=== PATIENT | female | born 1980 | race Hispanic/Latino ===

== ENCOUNTER 2016-07-15 10:39 | Emergency (ER) | payer BC, OTHER ==
--- NOTE | 2016-07-15 12:40 | REP ---
Chest two views HISTORY: Chest pain Comparison: 09/24/2006 The lungs are clear. The heart is normal in size. The pulmonary vasculature is normal in appearance. The bony structure is intact. IMPRESSION: No acute disease. Signed by Demar Watson MD 07/15/2016 12:31 P
[2016-07-15 13:00] LABS: BASO # 0.1 K/mm3 (0.0-0.2); BASO % 1.3 % (0.0-1.0); EOS # 0.1 K/mm3 (0.0-0.50); EOS % 1.3 % (0.0-3.0); LARGE UNSTAINED CELL # 0.1 K/mm3 (0.0-0.4); LARGE UNSTAINED CELL % 1.7 % (0.0-4.0); LYMPH # 2.3 K/mm3 (1.5-4.5); LYMPH % 29.9 % (24.0-44.0); MEAN CORPUSCULAR HEMOGLOBIN 30.3 pg (27.0-33.0); MEAN CORPUSCULAR HGB CONC 33.6 g/dl (32.0-36.5); MEAN CORPUSCULAR VOLUME 90.2 fl (80.0-96.0); MONO # 0.3 K/mm3 (0.0-0.8); NEUTROPHILS # 4.4 K/mm3 (1.8-7.7); NEUTROPHILS % 61.8 % (36.0-66.0); PLATELET COUNT, AUTOMATED 286 k/mm3 (150-450); RED CELL DISTRIBUTION WIDTH 13.1 % (11.5-14.5); WHITE BLOOD COUNT 7.2 K/mm3 (4.0-10.0)
[2016-07-15 13:02] LABS: INR 0.96
[2016-07-15 13:22] LABS: ANION GAP 10 MEQ/L (8-16); BLOOD UREA NITROGEN 13 MG/DL (7-18); CALCIUM LEVEL 8.9 MG/DL (8.5-10.1); CARBON DIOXIDE LEVEL 26 MEQ/L (21-32); CHLORIDE LEVEL 104 MEQ/L (98-107); GLOMERULAR FILTRATION RATE > 60.0 (>60); GLUCOSE, FASTING 84 MG/DL (70-105); POTASSIUM SERUM 3.9 MEQ/L (3.5-5.1); SODIUM LEVEL 140 MEQ/L (136-145)
--- NOTE | 2016-07-15 14:37 | EDDOCDS ---
Physician Documentation [facility] Name: Wilma Nash Age: 36 yrs Sex: Female : 1980 Arrival Date: 07/15/2016 Time: 10:39 Bed I6 / 28 Private MD: Disposition: 07/15/16 14:03 Discharged to Home/Self Care. Impression: Chest pain, unspecified. - Condition is Stable. - Discharge Instructions: Nonspecific Chest Pain. - Prescriptions for Carafate 1 gram Oral Tablet - take 2 tablet by ORAL route every 12 hours take on an empty stomach, beginning on waking and last dose at bedtime; 100 tablet. - Medication Reconciliation, Local Pharmacy Hours form. - Follow up: Private Physician; When: Call to arrange an appointment; Reason: Further diagnostic work-up, Recheck today's complaints, Continuance of care. - Problem is new. - Symptoms are unchanged. Historical: - Allergies: no known allergies; - Home Meds: 1. none - PMHx: tachycardia in past; - PSHx: ; - Social history: Smoking status: Patient states was never smoker of tobacco. No barriers to communication noted, The patient speaks fluent Upper Sorbian. - Family history: Not pertinent. - : The pt / caregiver states he / she is not on anticoagulants. Home medication list is obtained from the patient. - Exposure Risk Screening:: None identified. 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 2 in. (157.48 cm); 14:07 BP 122 / 78; Pulse 73; Resp 18; Temp 98.3(O); Pulse Ox 100% on R/A; Pain 6/10; nb2 10:41 Body Mass Index 29.26 (72.57 kg, 157.48 cm) elp MDM: 10:46 ECG WITH READING ER PHYS+CARDIAG ordered. EDMS 12:20 Financial registration complete. lg 12:24 Basic Metabolic Profile Ordered. EDMS 12:24 CBC with Diff Ordered. EDMS 12:24 Cardiac Injury Profile Ordered. EDMS 12:24 D-Dimer Quant Ordered. EDMS 12:24 Prothrombin Time Profile\E\INR Ordered. EDMS 12:24 Troponin Ordered. EDMS 12:26 Chest, 2 View (pa\E\lat) Ordered. EDMS 12:37 [facility] [place] Payment Agreement was scanned into [employer] and attached to record. lg 13:45 CBC with Diff Reviewed. btw 13:45 Basic Metabolic Profile Reviewed. btw 13:45 Cardiac Injury Profile Reviewed. btw 13:45 D-Dimer Quant Reviewed. btw 13:45 Prothrombin Time Profile\E\INR Reviewed. btw 13:45 Troponin Reviewed. btw 13:45 Chest, 2 View (pa\E\lat) Reviewed. btw Signatures: Dispatcher [employer] EDMS Niles ElizabethRN Maddy Silva RN Wagner Hartmann mcp, Zain Reg lg Frank Redmond PA PA btw Jessica Vega RN RN ttb The chart was reviewed and I authenticate all verbal orders and agree with the evaluation and treatment provided.Corrections: (The following items were deleted from the chart) 12:25 11:44 Chest, 1 view+XR ordered. EDMS EDMS Attachments: 12:37 [facility] Payment Agreement lg MTDD
--- NOTE | 2016-07-15 14:37 | EDDOCDS ---
Nurse's Notes [facility] Name: Wilma Nash Age: 36 yrs Sex: Female : 1980 Arrival Date: 07/15/2016 Time: 10:39 Bed I6 / 28 Private MD: Diagnosis: Chest pain, unspecified Presentation: 07/15 10:47 Presenting complaint: Patient states: Mid chest pain since yesterday--hurts with deep mcp breath--describes pain as pressure, started out as a sharp pain, woke up from sleeping. 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 Adult Sepsis Screening: The patient does not have new or worsening altered mentation. Patient's respiratory rate is less than 22. Systolic blood pressure is greater than 100. Patient has a qSOFA score of 0- Negative Sepsis Screen. Suicide/Homicide risk assessment- the patient denies having any suicidal and/or homicidal ideations and does not present with any other emotional, behavioral or mental health complaints. 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 Transition of care: patient was not received from another setting of care. 10:47 Acuity: ASHLEY Level [facility] 10:47 Method Of Arrival: Walkin/Carried/[facility] Triage Assessment: 10:50 General: Appears uncomfortable, Behavior is cooperative. Pain: Location: chest Pain mcp currently is 6 out of 10 on a pain scale. Quality of pain is described as pressure. HIV screening NA for this visit Offered previously. Neurological: No deficits noted. Cardiovascular: Rhythm is sinus rhythm No ectopy. Chest pain is described as severe, radiates Does not radiate. episodes are continuous began yesterday. Respiratory: Airway is patent Respiratory effort is even, unlabored. Derm: Skin is pink, warm & dry. 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 none - PMHx: tachycardia in past; - PSHx: ; - Social history: Smoking status: Patient states was never smoker of tobacco. No barriers to communication noted, The patient speaks fluent Belarusian. - Family history: Not pertinent. - : The pt / caregiver states he / she is not on anticoagulants. Home medication list is obtained from the patient. - Exposure Risk Screening:: None identified. Screenin:53 Screening information is obtained from the patient. Fall risk: No risks identified. ttb Assistance ADL's: requires no assistance with activities of daily living. Abuse/DV Screen: The patient / caregiver reports he/she is: not in a situation that causes fear, pain or injury. Nutritional screening: No deficits noted. Advance Directives: Currently, there is no health care proxy. home support is adequate. Assessment: 11:53 General: Appears in no apparent distress, well nourished, well groomed, Behavior is ttb appropriate for age, cooperative, pleasant, quiet. Pain: Location: left mid chest with inspriration. Cardiovascular: Chest pain quality is pressure. Respiratory: Airway is patent Respiratory effort is even, unlabored, Reports cough that is non-productive, pain with respiration the patient has mild shortness of breath Denies cough, shortness of breath. GI: Denies nausea, vomiting. Derm: Skin is normal. 13:27 General: Appears skin warm and dry color satisfactory. Moist pink oral mucosa. Point jmk specific discomfort is point specific to left anterior chest. pain is not reproduced with palpation of anterior intercostal spaces. chest CTA. without resp distress. pleasant and conversive.. Cardiovascular: Capillary refill < 3 seconds Heart tones S1 S2. 14:35 General: Appears states pain has unchanged since arrival. receptive to discharge.. k Vital Signs: 10:41 BP 129 / 80; Pulse 87; Resp 18; Temp 96.7; Pulse Ox 98% ; Weight 72.57 kg; Height 5 ft. elp 2 in. (157.48 cm); 14:07 BP 122 / 78; Pulse 73; Resp 18; Temp 98.3(O); Pulse Ox 100% on R/A; Pain 6/10; nb2 10:41 Body Mass Index 29.26 (72.57 kg, 157.48 cm) elp Vitals: 10:41 Log In Time: July 15, 2016 at 10:40. RN notified that patient meets Red Flag elp criteria. ED Course: 10:41 Patient visited by Viridiana Hemphill PCA. elp 10:41 Patient moved to Waiting elp 10:42 Patient visited by Viridiana Hemphill PCA. elp 10:44 Patient moved to PR2 / 26 elp 10:49 Triage Initiated mcp 10:51 Patient visited by Maddy Rudd RN. mcp 10:58 EKG done. (by ED staff). Reviewed by Angeles Brown MD. nb2 10:59 Patient visited by Zakiya Khan. nb2 11:04 Patient moved to Pre RCE mcp 11:51 Patient moved to Triage 1 ttb 11:53 The patient / caregiver is instructed regarding the plan of care and ED course. Patient ttb has correct armband on for positive identification. EKG completed as documented. 11:55 Patient visited by Jessica Vega RN. ttb 12:15 Frank Redmond PA is PHCP. btw 12:15 Angeles Brown MD is Attending Physician. btw 12:15 Patient visited by Frank Redmond PA. btw 12:22 Patient moved to TR1 cmb 12:22 Patient moved to I6 / 28 cmb 12:36 Patient name changed from Xaymara\S\\S\Nash\S\ to Xaymara\S\ \S\Nash. EDMS 12:37 [facility] Payment Agreement was scanned into [employer] and attached to record. lg 12:43 Chest, 2 View (pa\E\lat) Returned. EDMS 12:49 Basic Metabolic Profile Sent. nb2 12:50 CBC with Diff Sent. nb2 12:50 Cardiac Injury Profile Sent. nb2 12:50 D-Dimer Quant Sent. nb2 12:50 Prothrombin Time Profile\E\INR Sent. nb2 12:50 Troponin Sent. nb2 13:29 Patient visited by Zakiya Khan. nb2 13:29 Patient visited by Niles Elizabeth RN. jmk 14:07 Patient visited by Zakiya Khan. nb2 14:35 No IV's were initiated during this patient's visit. No procedures done that require jmk assistance. Order Results: Lab Order: Basic Metabolic Profile; SPEC'M 07/15/16 12:47 Test: GLUCOSE, FASTING; Value: 84; Range: 70-105; Units: MG/DL; Status: F Test: BLOOD UREA NITROGEN; Value: 13; Range: 7-18; Units: MG/DL; Status: F Test: CREATININE FOR GFR; Value: 0.80; Range: 0.55-1.02; Units: MG/DL; Status: F Test: GLOMERULAR FILTRATION RATE; Value: > 60.0; Range: >60; Status: F Test: SODIUM LEVEL; Value: 140; Range: 136-145; Units: MEQ/L; Status: F Test: POTASSIUM SERUM; Value: 3.9; Range: 3.5-5.1; Units: MEQ/L; Status: F Test: CHLORIDE LEVEL; Value: 104; Range: 98-107; Units: MEQ/L; Status: F Test: CARBON DIOXIDE LEVEL; Value: 26; Range: 21-32; Units: MEQ/L; Status: F Test: ANION GAP; Value: 10; Range: 8-16; Units: MEQ/L; Status: F Test: CALCIUM LEVEL; Value: 8.9; Range: 8.5-10.1; Units: MG/DL; Status: F Test Note: ; Units are mL/min/1.73 m2 Chronic Kidney Disease Staging per NKF: Stage I & II GFR >=60 Normal to Mildly Decreased Stage III GFR 30-59 Moderately Decreased Stage IV GFR 15-29 Severely Decreased Stage V GFR <15 Very Little GFR Left ESRD GFR <15 on MEDICAL AFFAIRS SPECIALIST Lab Order: CBC with Diff; SPEC'M 07/15/16 12:48 Test: WHITE BLOOD COUNT; Value: 7.2; Range: 4.0-10.0; Units: K/mm3; Status: F Test: RED BLOOD COUNT; Value: 5.07; Range: 4.00-5.40; Units: M/mm3; Status: F Test: HEMOGLOBIN; Value: 15.4; Range: 12.0-16.0; Units: g/dl; Status: F Test: HEMATOCRIT; Value: 45.7; Range: 36.0-47.0; Units: %; Status: F Test: MEAN CORPUSCULAR VOLUME; Value: 90.2; Range: 80.0-96.0; Units: fl; Status: F Test: MEAN CORPUSCULAR HEMOGLOBIN; Value: 30.3; Range: 27.0-33.0; Units: pg; Status: F Test: MEAN CORPUSCULAR HGB CONC; Value: 33.6; Range: 32.0-36.5; Units: g/dl; Status: F Test: RED CELL DISTRIBUTION WIDTH; Value: 13.1; Range: 11.5-14.5; Units: %; Status: F Test: PLATELET COUNT, AUTOMATED; Value: 286; Range: 150-450; Units: k/mm3; Status: F Test: NEUTROPHILS %; Value: 61.8; Range: 36.0-66.0; Units: %; Status: F Test: LYMPH %; Value: 29.9; Range: 24.0-44.0; Units: %; Status: F Test: MONO %; Value: 4.0; Range: 0.0-5.0; Units: %; Status: F Test: EOS %; Value: 1.3; Range: 0.0-3.0; Units: %; Status: F Test: BASO %; Value: 1.3; Range: 0.0-1.0; Abnormal: Above high normal; Units: %; Status: F Test: LARGE UNSTAINED CELL %; Value: 1.7; Range: 0.0-4.0; Units: %; Status: F Test: NEUTROPHILS #; Value: 4.4; Range: 1.8-7.7; Units: K/mm3; Status: F Test: LYMPH #; Value: 2.3; Range: 1.5-4.5; Units: K/mm3; Status: F Test: MONO #; Value: 0.3; Range: 0.0-0.8; Units: K/mm3; Status: F Test: EOS #; Value: 0.1; Range: 0.0-0.50; Units: K/mm3; Status: F Test: BASO #; Value: 0.1; Range: 0.0-0.2; Units: K/mm3; Status: F Test: LARGE UNSTAINED CELL #; Value: 0.1; Range: 0.0-0.4; Units: K/mm3; Status: F Lab Order: Cardiac Injury Profile; SPEC'M 07/15/16 12:47 Test: CPK CREATINE PHOSPHOKINASE; Value: 115; Range: 26-192; Units: U/L; Status: F Test: CK-MB VALUE MASS; Value: 1.0; Range: 0.0-3.6; Units: NG/ML; Status: F Test: MB/CK RELATIVE INDEX; Value: 0.86; Range: < OR =4; Status: F Test Note: ; DIAGNOSIS CRITERIA MMB ng/ml Relative Index (RI) NON-AMI < or = 5 N/A KUMAR ZONE > 5 < or = 4 AMI > 5 > 4 Lab Order: D-Dimer Quant; SPEC'M 07/15/16 12:47 Test: D-DIMER QUANT; Value: < 270.0; Range: <500; Units: ng/ml; Status: F Lab Order: Prothrombin Time Profile\E\INR; SPEC'M 07/15/16 12:47 Test: PROTHROMBIN TIME; Value: 12.9; Range: 12.3-14.5; Units: SECONDS; Status: F Test: INR; Value: 0.96; Status: F Test Note: ; THERAPUTIC HUMAN INR VALUES INDICATIONS NORMAL RANGES PROPHYLAXIS/TREATMENT OF: VENOUS THROMBOSIS 2.0-3.0 PULMONARY EMBOLISM 2.0-3.0 PREVENTION OF SYSTEMIC EMBOLISM FROM: TISSUE HEART VALVES 2.0-3.0 ACUTE MYOCARDIAL INFARCTION 2.0-3.0 VALVULAR HEART DISEASE 2.0-3.0 ATRIAL FIBRILLATION 2.0-3.0 MECHANICAL VALVES(HIGH RISK) 2.5-3.5 RECURRENT MYOCARDIAL INFARCTION 2.5-3.5 Lab Order: Troponin; SPEC'M 07/15/16 12:47 Test: TROPONIN I; Value: < 0.02; Range: < 0.10; Units: NG/ML; Status: F Test Note: ; Troponin I Reference Interval for [place] LOCI: 99th Percentile= 0.00-0.045 ng/ml Risk Stratification: <= 0.10 ng/ml Decreased Risk for Adverse Clinical Events. 0.10-1.50 ng/ml Increased Risk for Adverse Clinical Events. Evaluation of additional criterion and/or repeat testing in 2-6 hours is suggested to rule out myocardial damage. >= 1.50 ng/ml Indicative of Myocardial Injury. Radiology Order: Chest, 2 View (pa\E\lat) Test: Chest, 2 View (pa\E\lat) REASON FOR EXAMINATION: Chest Pain; Chest two views; ; HISTORY: Chest pain; ; Comparison: 09/24/2006; ; The lungs are clear. The heart is normal in size. The pulmonary vasculature is; normal in appearance. The bony structure is intact.; ; IMPRESSION: No acute disease.; ; ; Signed by; Demar Watson MD 07/15/2016 12:31 P; Outcome: 14:03 Discharge ordered by Provider. btw 14:35 Discharge Assessment: Patient awake, alert and oriented x 3. No cognitive and/or jmk functional deficits noted. Patient verbalized understanding of disposition instructions. patient administered narcotics - no. The following High Risk Discharge criteria are identified: None. Discharged to home ambulatory. Condition: good. Discharge instructions given to patient, Instructed on discharge instructions, follow up and referral plans. medication usage, Demonstrated understanding of instructions, medications, Pt was receptive of discharge instructions/ teaching. Prescriptions given X 1. No special radiology studies were completed. Property :Personal belongings accompany Pt. 14:36 Patient left the ED. vance Signatures: Dispatcher [employer] EDNiles Austin,RN RN Maddy Villalta RN RN Wagner Rush, Zain Reg lg Frank Redmond PA PA btw Mikaela Cotton Teresa, RN RN rangelb Viridiana Hemphill, DENISE MANAGER SOLUTION Zakiya Kumar2 KENDRICK
--- NOTE | 2016-07-16 06:45 | ECGEPIP ---
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
--- NOTE | 2016-07-17 15:38 | EDDOCDS ---
Nurse's Notes [facility] Name: Allen Valentino Age: 36 yrs Sex: Female : 1980 Arrival Date: 07/15/2016 Time: 10:39 Bed I6 / 28 Private MD: Diagnosis: Chest pain, unspecified Presentation: 07/15 10:47 Presenting complaint: Patient states: Mid chest pain since yesterday--hurts with deep mcp breath--describes pain as pressure, started out as a sharp pain, woke up from sleeping. 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 Adult Sepsis Screening: The patient does not have new or worsening altered mentation. Patient's respiratory rate is less than 22. Systolic blood pressure is greater than 100. Patient has a qSOFA score of 0- Negative Sepsis Screen. Suicide/Homicide risk assessment- the patient denies having any suicidal and/or homicidal ideations and does not present with any other emotional, behavioral or mental health complaints. Status: Patient is not a neuropsychology service director or dependent. Transition of care: patient was not received from another setting of care. 10:47 Acuity: ASHLEY Level 3 [facility] 10:47 Method Of Arrival: Walkin/Carried/[facility] Triage Assessment: 10:50 General: Appears uncomfortable, Behavior is cooperative. Pain: Location: chest Pain mcp currently is 6 out of 10 on a pain scale. Quality of pain is described as pressure. HIV screening NA for this visit Offered previously. Neurological: No deficits noted. Cardiovascular: Rhythm is sinus rhythm No ectopy. Chest pain is described as severe, radiates Does not radiate. episodes are continuous began yesterday. Respiratory: Airway is patent Respiratory effort is even, unlabored. Derm: Skin is pink, warm & dry. LEADITE HEATER: 10:50 4, Living 1, LMP 06/2016 [facility] Historical: - Allergies: no known allergies; - Home Meds: 1. none - PMHx: tachycardia in past; - PSHx: ; - Social history: Smoking status: Patient states was never smoker of tobacco. No barriers to communication noted, The patient speaks fluent Icelandic. - Family history: Not pertinent. - : The pt / caregiver states he / she is not on anticoagulants. Home medication list is obtained from the patient. - Exposure Risk Screening:: None identified. Screenin:53 Screening information is obtained from the patient. Fall risk: No risks identified. ttb Assistance ADL's: requires no assistance with activities of daily living. Abuse/DV Screen: The patient / caregiver reports he/she is: not in a situation that causes fear, pain or injury. Nutritional screening: No deficits noted. Advance Directives: Currently, there is no health care proxy. home support is adequate. Assessment: 11:53 General: Appears in no apparent distress, well nourished, well groomed, Behavior is ttb appropriate for age, cooperative, pleasant, quiet. Pain: Location: left mid chest with inspriration. Cardiovascular: Chest pain quality is pressure. Respiratory: Airway is patent Respiratory effort is even, unlabored, Reports cough that is non-productive, pain with respiration the patient has mild shortness of breath Denies cough, shortness of breath. GI: Denies nausea, vomiting. Derm: Skin is normal. 13:27 General: Appears skin warm and dry color satisfactory. Moist pink oral mucosa. Point jmk specific discomfort is point specific to left anterior chest. pain is not reproduced with palpation of anterior intercostal spaces. chest CTA. without resp distress. pleasant and conversive.. Cardiovascular: Capillary refill < 3 seconds Heart tones S1 S2. 14:35 General: Appears states pain has unchanged since arrival. receptive to discharge.. k Vital Signs: 10:41 BP 129 / 80; Pulse 87; Resp 18; Temp 96.7; Pulse Ox 98% ; Weight 72.57 kg; Height 5 ft. elp 2 in. (157.48 cm); 14:07 BP 122 / 78; Pulse 73; Resp 18; Temp 98.3(O); Pulse Ox 100% on R/A; Pain 6/10; nb2 10:41 Body Mass Index 29.26 (72.57 kg, 157.48 cm) elp Vitals: 10:41 Log In Time: July 15, 2016 at 10:40. RN notified that patient meets Red Flag elp criteria. ED Course: 10:41 Patient visited by Viridiana Hemphill PCA. elp 10:41 Patient moved to Waiting elp 10:42 Patient visited by Viridiana Hemphill PCA. elp 10:44 Patient moved to PR2 / 26 elp 10:49 Triage Initiated mcp 10:51 Patient visited by Maddy Rudd RN. mcp 10:58 EKG done. (by ED staff). Reviewed by Angeles Brown MD. nb2 10:59 Patient visited by Zakiya Khan. nb2 11:04 Patient moved to Pre RCE mcp 11:51 Patient moved to Triage 1 ttb 11:53 The patient / caregiver is instructed regarding the plan of care and ED course. Patient ttb has correct armband on for positive identification. EKG completed as documented. 11:55 Patient visited by Jessica Vega RN. ttb 12:15 Frank Redmond PA is PHCP. btw 12:15 Angeles Brown MD is Attending Physician. btw 12:15 Patient visited by Frank Redmond PA. btw 12:22 Patient moved to TR1 cmb 12:22 Patient moved to I6 / 28 cmb 12:36 Patient name changed from Xaymara\S\\S\Valentino\S\ to Xaymara\S\ \S\Valentino. EDMS 12:37 [facility] Payment Agreement was scanned into [employer] and attached to record. lg 12:43 Chest, 2 View (pa\E\lat) Returned. EDMS 12:49 Basic Metabolic Profile Sent. nb2 12:50 CBC with Diff Sent. nb2 12:50 Cardiac Injury Profile Sent. nb2 12:50 D-Dimer Quant Sent. nb2 12:50 Prothrombin Time Profile\E\INR Sent. nb2 12:50 Troponin Sent. nb2 13:29 Patient visited by Zakiya Khan. nb2 13:29 Patient visited by Niles Elizabeth,TRACI. jmk 14:07 Patient visited by Zakiya Khan. nb2 14:35 No IV's were initiated during this patient's visit. No procedures done that require jmk assistance. 15:35 T-Sheet-- Draft Copy was scanned into [employer] and attached to record. gb 15:35 ECG/EKG was scanned into [employer] and attached to record. gb 07/16 06:53 EKG-ADULT Returned. EDMS Order Results: Lab Order: Basic Metabolic Profile; SPEC'M 07/15/16 12:47 Test: GLUCOSE, FASTING; Value: 84; Range: 70-105; Units: MG/DL; Status: F Test: BLOOD UREA NITROGEN; Value: 13; Range: 7-18; Units: MG/DL; Status: F Test: CREATININE FOR GFR; Value: 0.80; Range: 0.55-1.02; Units: MG/DL; Status: F Test: GLOMERULAR FILTRATION RATE; Value: > 60.0; Range: >60; Status: F Test: SODIUM LEVEL; Value: 140; Range: 136-145; Units: MEQ/L; Status: F Test: POTASSIUM SERUM; Value: 3.9; Range: 3.5-5.1; Units: MEQ/L; Status: F Test: CHLORIDE LEVEL; Value: 104; Range: 98-107; Units: MEQ/L; Status: F Test: CARBON DIOXIDE LEVEL; Value: 26; Range: 21-32; Units: MEQ/L; Status: F Test: ANION GAP; Value: 10; Range: 8-16; Units: MEQ/L; Status: F Test: CALCIUM LEVEL; Value: 8.9; Range: 8.5-10.1; Units: MG/DL; Status: F Test Note: ; Units are mL/min/1.73 m2 Chronic Kidney Disease Staging per NKF: Stage I & II GFR >=60 Normal to Mildly Decreased Stage III GFR 30-59 Moderately Decreased Stage IV GFR 15-29 Severely Decreased Stage V GFR <15 Very Little GFR Left ESRD GFR <15 on MARINE ENGINEERING CONSULTANT Lab Order: CBC with Diff; SPEC'M 07/15/16 12:48 Test: WHITE BLOOD COUNT; Value: 7.2; Range: 4.0-10.0; Units: K/mm3; Status: F Test: RED BLOOD COUNT; Value: 5.07; Range: 4.00-5.40; Units: M/mm3; Status: F Test: HEMOGLOBIN; Value: 15.4; Range: 12.0-16.0; Units: g/dl; Status: F Test: HEMATOCRIT; Value: 45.7; Range: 36.0-47.0; Units: %; Status: F Test: MEAN CORPUSCULAR VOLUME; Value: 90.2; Range: 80.0-96.0; Units: fl; Status: F Test: MEAN CORPUSCULAR HEMOGLOBIN; Value: 30.3; Range: 27.0-33.0; Units: pg; Status: F Test: MEAN CORPUSCULAR HGB CONC; Value: 33.6; Range: 32.0-36.5; Units: g/dl; Status: F Test: RED CELL DISTRIBUTION WIDTH; Value: 13.1; Range: 11.5-14.5; Units: %; Status: F Test: PLATELET COUNT, AUTOMATED; Value: 286; Range: 150-450; Units: k/mm3; Status: F Test: NEUTROPHILS %; Value: 61.8; Range: 36.0-66.0; Units: %; Status: F Test: LYMPH %; Value: 29.9; Range: 24.0-44.0; Units: %; Status: F Test: MONO %; Value: 4.0; Range: 0.0-5.0; Units: %; Status: F Test: EOS %; Value: 1.3; Range: 0.0-3.0; Units: %; Status: F Test: BASO %; Value: 1.3; Range: 0.0-1.0; Abnormal: Above high normal; Units: %; Status: F Test: LARGE UNSTAINED CELL %; Value: 1.7; Range: 0.0-4.0; Units: %; Status: F Test: NEUTROPHILS #; Value: 4.4; Range: 1.8-7.7; Units: K/mm3; Status: F Test: LYMPH #; Value: 2.3; Range: 1.5-4.5; Units: K/mm3; Status: F Test: MONO #; Value: 0.3; Range: 0.0-0.8; Units: K/mm3; Status: F Test: EOS #; Value: 0.1; Range: 0.0-0.50; Units: K/mm3; Status: F Test: BASO #; Value: 0.1; Range: 0.0-0.2; Units: K/mm3; Status: F Test: LARGE UNSTAINED CELL #; Value: 0.1; Range: 0.0-0.4; Units: K/mm3; Status: F Lab Order: Cardiac Injury Profile; SPEC'M 07/15/16 12:47 Test: CPK CREATINE PHOSPHOKINASE; Value: 115; Range: 26-192; Units: U/L; Status: F Test: CK-MB VALUE MASS; Value: 1.0; Range: 0.0-3.6; Units: NG/ML; Status: F Test: MB/CK RELATIVE INDEX; Value: 0.86; Range: < OR =4; Status: F Test Note: ; DIAGNOSIS CRITERIA MMB ng/ml Relative Index (RI) NON-AMI < or = 5 N/A KUMAR ZONE > 5 < or = 4 AMI > 5 > 4 Lab Order: D-Dimer Quant; SPEC'M 07/15/16 12:47 Test: D-DIMER QUANT; Value: < 270.0; Range: <500; Units: ng/ml; Status: F Lab Order: Prothrombin Time Profile\E\INR; SPEC'M 07/15/16 12:47 Test: PROTHROMBIN TIME; Value: 12.9; Range: 12.3-14.5; Units: SECONDS; Status: F Test: INR; Value: 0.96; Status: F Test Note: ; THERAPUTIC HUMAN INR VALUES INDICATIONS NORMAL RANGES PROPHYLAXIS/TREATMENT OF: VENOUS THROMBOSIS 2.0-3.0 PULMONARY EMBOLISM 2.0-3.0 PREVENTION OF SYSTEMIC EMBOLISM FROM: TISSUE HEART VALVES 2.0-3.0 ACUTE MYOCARDIAL INFARCTION 2.0-3.0 VALVULAR HEART DISEASE 2.0-3.0 ATRIAL FIBRILLATION 2.0-3.0 MECHANICAL VALVES(HIGH RISK) 2.5-3.5 RECURRENT MYOCARDIAL INFARCTION 2.5-3.5 Lab Order: Troponin; SPEC'M 07/15/16 12:47 Test: TROPONIN I; Value: < 0.02; Range: < 0.10; Units: NG/ML; Status: F Test Note: ; Troponin I Reference Interval for [place] LOCI: 99th Percentile= 0.00-0.045 ng/ml Risk Stratification: <= 0.10 ng/ml Decreased Risk for Adverse Clinical Events. 0.10-1.50 ng/ml Increased Risk for Adverse Clinical Events. Evaluation of additional criterion and/or repeat testing in 2-6 hours is suggested to rule out myocardial damage. >= 1.50 ng/ml Indicative of Myocardial Injury. 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 The heart is normal in size. The pulmonary vasculature is; normal in appearance. The bony structure is intact.; ; IMPRESSION: No acute disease.; ; ; Signed by; Demar Watson MD 07/15/2016 12:31 P; Outcome: 07/15 14:03 Discharge ordered by Provider. btw 14:35 Discharge Assessment: Patient awake, alert and oriented x 3. No cognitive and/or jmk functional deficits noted. Patient verbalized understanding of disposition instructions. patient administered narcotics - no. The following High Risk Discharge criteria are identified: None. Discharged to home ambulatory. Condition: good. Discharge instructions given to patient, Instructed on discharge instructions, follow up and referral plans. medication usage, Demonstrated understanding of instructions, medications, Pt was receptive of discharge instructions/ teaching. Prescriptions given X 1. No special radiology studies were completed. Property :Personal belongings accompany Pt. 14:36 Patient left the ED. treverk Signatures: Dispatcher [employer] EDMS Niles ElizabethRN Maddy Silva RN RN mcp Barnhardt, Gloria, Reg Reg gb Wagner Driver, Reg Reg lg Frank Redmond PA PA btw Mikaela Cotton Teresa, RN RN ttb Viridiana Hemphill, DENISE [employer] SALES ENGINEER elp Baart, Zakiya nb2 Chart Complete MTDD
--- NOTE | 2016-07-17 15:38 | EDDOCDS ---
Physician Documentation [facility] Name: Wilma Nash Age: 36 yrs Sex: Female : 1980 Arrival Date: 07/15/2016 Time: 10:39 Bed I6 / 28 Private MD: Disposition: 07/15/16 14:03 Discharged to Home/Self Care. Impression: Chest pain, unspecified. - Condition is Stable. - Discharge Instructions: Nonspecific Chest Pain. - Prescriptions for Carafate 1 gram Oral Tablet - take 2 tablet by ORAL route every 12 hours take on an empty stomach, beginning on waking and last dose at bedtime; 100 tablet. - Medication Reconciliation, Local Pharmacy Hours form. - Follow up: Private Physician; When: Call to arrange an appointment; Reason: Further diagnostic work-up, Recheck today's complaints, Continuance of care. - Problem is new. - Symptoms are unchanged. Historical: - Allergies: no known allergies; - Home Meds: 1. none - PMHx: tachycardia in past; - PSHx: ; - Social history: Smoking status: Patient states was never smoker of tobacco. No barriers to communication noted, The patient speaks fluent Kyrgyz. - Family history: Not pertinent. - : The pt / caregiver states he / she is not on anticoagulants. Home medication list is obtained from the patient. - Exposure Risk Screening:: None identified. 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 2 in. (157.48 cm); 14:07 BP 122 / 78; Pulse 73; Resp 18; Temp 98.3(O); Pulse Ox 100% on R/A; Pain 6/10; nb2 10:41 Body Mass Index 29.26 (72.57 kg, 157.48 cm) elp MDM: 10:46 ECG WITH READING ER PHYS+CARDIAG ordered. EDMS 12:20 Financial registration complete. lg 12:24 Basic Metabolic Profile Ordered. EDMS 12:24 CBC with Diff Ordered. EDMS 12:24 Cardiac Injury Profile Ordered. EDMS 12:24 D-Dimer Quant Ordered. EDMS 12:24 Prothrombin Time Profile\E\INR Ordered. EDMS 12:24 Troponin Ordered. EDMS 12:26 Chest, 2 View (pa\E\lat) Ordered. EDMS 12:37 [facility] Payment Agreement was scanned into [employer] and attached to record. lg 13:45 CBC with Diff Reviewed. btw 13:45 Basic Metabolic Profile Reviewed. btw 13:45 Cardiac Injury Profile Reviewed. btw 13:45 D-Dimer Quant Reviewed. btw 13:45 Prothrombin Time Profile\E\INR Reviewed. btw 13:45 Troponin Reviewed. btw 13:45 Chest, 2 View (pa\E\lat) Reviewed. btw 15:35 T-Sheet-- Draft Copy was scanned into [employer] and attached to record. gb 15:35 ECG/EKG was scanned into [employer] and attached to record. gb Signatures: Dispatcher [employer] EDNiles Austin,RN Maddy Silva RN Carley Lockwood mcp, Reg Reg gb Wagner Driver, Reg Reg lg Frank Redmond, PA PA btw Jessica Vega RN TRACI ttb The chart was reviewed and I authenticate all verbal orders and agree with the evaluation and treatment provided.Corrections: (The following items were deleted from the chart) 12:25 11:44 Chest, 1 view+XR ordered. EDMS EDMS Attachments: 12:37 [facility] Payment Agreement lg 15:35 T-Sheet-- Draft Copy gb 15:35 ECG/EKG gb Chart Complete MTDD
--- NOTE | 2016-07-17 15:38 | EDDOCDS ---
Physician Documentation [facility] Name: Wilma Nash Age: 36 yrs Sex: Female : 1980 Arrival Date: 07/15/2016 Time: 10:39 Bed I6 / 28 Private MD: Disposition: 07/15/16 14:03 Discharged to Home/Self Care. Impression: Chest pain, unspecified. - Condition is Stable. - Discharge Instructions: Nonspecific Chest Pain. - Prescriptions for Carafate 1 gram Oral Tablet - take 2 tablet by ORAL route every 12 hours take on an empty stomach, beginning on waking and last dose at bedtime; 100 tablet. - Medication Reconciliation, Local Pharmacy Hours form. - Follow up: Private Physician; When: Call to arrange an appointment; Reason: Further diagnostic work-up, Recheck today's complaints, Continuance of care. - Problem is new. - Symptoms are unchanged. Historical: - Allergies: no known allergies; - Home Meds: 1. none - PMHx: tachycardia in past; - PSHx: ; - Social history: Smoking status: Patient states was never smoker of tobacco. No barriers to communication noted, The patient speaks fluent Chinese. - Family history: Not pertinent. - : The pt / caregiver states he / she is not on anticoagulants. Home medication list is obtained from the patient. - Exposure Risk Screening:: None identified. 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 2 in. (157.48 cm); 14:07 BP 122 / 78; Pulse 73; Resp 18; Temp 98.3(O); Pulse Ox 100% on R/A; Pain 6/10; nb2 10:41 Body Mass Index 29.26 (72.57 kg, 157.48 cm) elp MDM: 10:46 ECG WITH READING ER PHYS+CARDIAG ordered. EDMS 12:20 Financial registration complete. lg 12:24 Basic Metabolic Profile Ordered. EDMS 12:24 CBC with Diff Ordered. EDMS 12:24 Cardiac Injury Profile Ordered. EDMS 12:24 D-Dimer Quant Ordered. EDMS 12:24 Prothrombin Time Profile\E\INR Ordered. EDMS 12:24 Troponin Ordered. EDMS 12:26 Chest, 2 View (pa\E\lat) Ordered. EDMS 12:37 [facility] [place] Agreement was scanned into [employer] and attached to record. lg 13:45 CBC with Diff Reviewed. btw 13:45 Basic Metabolic Profile Reviewed. btw 13:45 Cardiac Injury Profile Reviewed. btw 13:45 D-Dimer Quant Reviewed. btw 13:45 Prothrombin Time Profile\E\INR Reviewed. btw 13:45 Troponin Reviewed. btw 13:45 Chest, 2 View (pa\E\lat) Reviewed. btw 15:35 T-Sheet-- Draft Copy was scanned into [employer] and attached to record. gb 15:35 ECG/EKG was scanned into [employer] and attached to record. gb Signatures: Dispatcher [employer] EDNiles Austin,RN Maddy Silva RN Carley Lockwood mcp, Reg Reg gb Wagner Driver, Reg Reg lg Frank Redmond, PA PA btw Jessica Vega RN TRACI ttb The chart was reviewed and I authenticate all verbal orders and agree with the evaluation and treatment provided.Corrections: (The following items were deleted from the chart) 12:25 11:44 Chest, 1 view+XR ordered. EDMS EDMS Attachments: 12:37 [facility] Payment Agreement lg 15:35 T-Sheet-- Draft Copy gb 15:35 ECG/EKG gb Chart Complete MTDD
== END 2016-07-15 14:36 | disposition home or self-care (01) ==
LOC: M ED 10:39
DX: R07.9 Chest pain, unspecified (principal); R06.02 Shortness of breath

== ENCOUNTER → 2022-10-30 | Outpatient (CLI) | payer BC, OTHER | LOC: M WHC 08:58 | PROVIDERS: ATTEND Advanced Practice Midwife | DX: Z12.31 Encounter for screening mammogram for malignant neoplasm of breast (principal); Z80.41 Family history of malignant neoplasm of ovary ==